=== PATIENT | male | born 1960 | race Caucasian/White ===

== ENCOUNTER 2017-10-30 09:56 | Emergency (ER) | payer SELFPAY ==
[2017-10-30] MEDS ORDERED: Rabies Vaccine 2.5 UNIT VIAL IM SCH (11:30)
[2017-10-30] MEDS ORDERED: Rabies Immune Globulin 1500 UNITS/10 ML VIAL IM SCH (11:30)
== END 2017-10-30 12:38 | disposition home or self-care (01) ==
LOC: ERS 09:56
DX: Z20.3 Contact with and (suspected) exposure to rabies (principal); I10 Essential (primary) hypertension
CPT/HCPCS: 90375; 90471; 90675; 96372

== ENCOUNTER → 2017-11-02 | Day surgery (SDC) | payer SELFPAY ==
[~2017-11-02] MED LIST: Rabies Vaccine Human 2.5 UNITS VIAL IM ONE
== END ==
LOC: ERS 07:57 → ER/OP 07:57 → EDSTATUS 08:16
PROVIDERS: ATTEND Emergency Medicine
DX: Z23 Encounter for immunization (principal); I10 Essential (primary) hypertension
CPT/HCPCS: 90471; 90675

== ENCOUNTER → 2017-11-06 | Day surgery (SDC) | payer SELFPAY ==
[~2017-11-06] MED LIST changes: +Rabies Vaccine 2.5 UNIT VIAL IM SCH; -Rabies Vaccine Human 2.5 UNITS VIAL IM ONE
== END ==
LOC: ERS 08:03 → ER/OP 08:03 → EDSTATUS 11:36
PROVIDERS: ATTEND Emergency Medicine
DX: Z23 Encounter for immunization (principal); E78.5 Hyperlipidemia, unspecified; I10 Essential (primary) hypertension; Z20.3 Contact with and (suspected) exposure to rabies
CPT/HCPCS: 90471; 90675

== ENCOUNTER 2017-11-13 07:53 | Day surgery (SDC) | payer SELFPAY ==
[2017-11-13] MEDS ORDERED: Rabies Vaccine 2.5 UNIT VIAL IM SCH (08:15)
== END 2017-11-13 09:20 | disposition home or self-care (01) ==
LOC: ERS 07:53 → ER/OP 07:53 → ERS 09:20 → ER/OP 09:20 → EDSTATUS 11:39
PROVIDERS: ATTEND Emergency Medicine
DX: Z20.3 Contact with and (suspected) exposure to rabies (principal); Z29.14 Encounter for prophylactic rabies immune globulin
CPT/HCPCS: 90471; 90675

== ENCOUNTER 2023-04-10 14:45 | Outpatient (CLI) | payer BC | END 2023-04-10 14:46 | disposition home or self-care (01) | LOC: ULT 14:45 | PROVIDERS: ATTEND Physician Assistant | DX: R10.31 Right lower quadrant pain (principal); I86.1 Scrotal varices | CPT/HCPCS: 76870; 93976 ==